=== PATIENT | male | born 1955 | race Caucasian/White ===

== ENCOUNTER → 2016-09-29 | Outpatient (CLI) | payer BC ==
[2016-09-29 09:55] LABS: HEMATOCRIT 49.1 % (37.9-51.0); HEMOGLOBIN 16.3 g/dL (13.5-17.0); HGB HCT DIFFERENCE -0.2; MEAN CORPUSCULAR HEMOGLOBIN 29.9 pg (27.0-33.4); MEAN CORPUSCULAR HGB CONC 33.2 g/dL (32.0-36.0); MEAN CORPUSCULAR VOLUME 90 fl (80-97); RED BLOOD COUNT 5.46 10^6/uL (4.35-5.55); RED CELL DISTRIBUTION WIDTH 12.2 % (11.5-14.0); WHITE BLOOD COUNT 8.1 10^3/uL (4.0-10.5)
[2016-09-29 10:16] LABS: ALANINE AMINOTRANSFERASE 30 U/L (21-72); ALBUMIN 4.4 g/dL (3.5-5.0); ALKALINE PHOSPHATASE 96 U/L (38-126); ASPARTATE AMINO TRANSFERASE 20 U/L (17-59); BILIRUBIN,TOTAL 0.6 mg/dL (0.2-1.3); CHOLESTEROL 143.94 mg/dL (0-200); Direct HDL 30 mg/dL (>40); TOTAL PROTEIN 6.7 g/dL (6.3-8.2); TRIGLYCERIDES 205 mg/dL (<150)
[2016-09-29 10:23] LABS: ANION GAP 10 (5-19); BLOOD UREA NITROGEN 21 mg/dL (7-20); CALCIUM 9.6 mg/dL (8.4-10.2); CARBON DIOXIDE 31 mmol/L (22-30); CHLORIDE 102 mmol/L (98-107); CREATININE RESULT 0.99 mg/dL (0.52-1.25); GLUCOSE 105 mg/dL (75-110); SODIUM 142.6 mmol/L (137-145)
[2016-09-29 10:28] LABS: DIRECT LDL 81 mg/dL (<100)
== END ==
LOC: OD 08:41
PROVIDERS: ATTEND Internal Medicine Cardiovascular Disease
DX: E78.00 Pure hypercholesterolemia, unspecified (principal); Z79.899 Other long term (current) drug therapy
CPT/HCPCS: 36415; 80048; 80061; 80076; 84443; 85027

== ENCOUNTER 2016-10-03 20:59 | Observation (INO) | payer BC ==
[2016-10-03] MEDS ORDERED: IPRATROPIUM/ALBUTEROL 0.5-2.5 MG/3 ML AMPUL NEB ONE (21:16)
[2016-10-03 21:32] LABS: ABSOLUTE EOSINOPHILS # (AUTO) 0.2 10^3/uL (0.0-0.6); ABSOLUTE MONOCYTES (AUTO) 0.7 10^3/uL (0.1-1.4); ABSOLUTE NEUT (AUTO) 5.1 10^3/uL (1.7-8.2); BASOPHILS % (AUTO) 0.5 % (0-2); EOSINOPHILS % (AUTO) 2.5 % (0-6); HEMATOCRIT 43.5 % (37.9-51.0); HEMOGLOBIN 14.8 g/dL (13.5-17.0); HGB HCT DIFFERENCE 0.9; LYMPHOCYTES % (AUTO) 24.8 % (13-45); MEAN CORPUSCULAR HEMOGLOBIN 29.8 pg (27.0-33.4); MEAN CORPUSCULAR VOLUME 88 fl (80-97); MONOCYTES % (AUTO) 8.9 % (3-13); RED BLOOD COUNT 4.96 10^6/uL (4.35-5.55); RED CELL DISTRIBUTION WIDTH 12.2 % (11.5-14.0); SEGMENTED NEUTROPHILS % (AUTO) 63.3 % (42-78)
--- NOTE | 2016-10-03 21:33 | ER Document Report ---
ED Cardiac - General Stated Complaint: CHEST PAIN Time seen by provider: 21:10 Notes: Patient is a 61 year old male that comes by EMS for chief complaint of chest pain, he points to the mid sternum area as the area of symptoms, patient states that the pain began when he got angry watching the news at about 2030. He went and took a nitroglycerin and symptoms resolved. Patient given 324 ASA. Patient is on Plavix. Patient states that he just had an echocardiogram with his biomaterials engineer and he is in consultation with another biomaterials engineer for potential cardiac catheter and stent placement next month he reports. Patient is a daily smoker. TRAVEL OUTSIDE OF THE [place] IN LAST 30 DAYS: No - Related Data Allergies/Adverse Reactions: acetaminophen [From Percocet] Allergy (Verified 10/04/16 03:12) oxycodone [From Percocet] Allergy (Verified 10/04/16 03:12) Past Medical History - General Information source: Patient - Social History Smoking Status: Current Every Day Smoker Smoking Education Provided: Yes - <3 min Frequency of alcohol use: None Drug Abuse: None Lives with: Family Family History: Reviewed & Not Pertinent - Past Medical History Cardiac Medical History: Reports: Hx Coronary Artery Disease, Hx Hypertension Review of Systems - Review of Systems Constitutional: No symptoms reported EENT: No symptoms reported Cardiovascular: See HPI Respiratory: No symptoms reported Gastrointestinal: No symptoms reported Genitourinary: No symptoms reported Male Genitourinary: No symptoms reported Musculoskeletal: No symptoms reported Skin: No symptoms reported Hematologic/Lymphatic: No symptoms reported Neurological/Psychological: No symptoms reported Physical Exam - Vital signs Vitals: Resp Pulse Ox 16 96 10/03/16 21:06 10/03/16 21:06 Interpretation: Normal - General General appearance: Appears well, Alert In distress: None - HEENT Head: Normocephalic, Atraumatic Eyes: Normal Extraocular movements intact: Yes Eyelashes: Normal Pupils: PERRL Nasal: Normal Mouth/Lips: Normal Mucous membranes: Normal Pharynx: Normal Neck: Normal - Respiratory Respiratory status: No respiratory distress Chest status: Nontender Breath sounds: Decreased air movement, Wheezing Chest palpation: Normal - Cardiovascular Rhythm: Regular. No: Tachycardia Heart sounds: Normal auscultation, S1 appreciated, S2 appreciated Murmur: No - Abdominal Inspection: Normal Distension: No distension Bowel sounds: Normal Tenderness: Nontender Organomegaly: No organomegaly - Back Back: Normal, Nontender - Extremities General upper extremity: Normal inspection, Nontender, Normal color, Normal ROM , Normal temperature General lower extremity: Normal inspection, Nontender, Normal color, Normal ROM , Normal temperature, Normal weight bearing. No: Edema, Yenni's sign - Neurological Neuro grossly intact: Yes Cognition: Normal Orientation: AAOx4 [place]na Coma Scale Eye Opening: Spontaneous [place] Coma Scale Verbal: Oriented [place] Coma Scale Motor: Obeys Commands [place] Coma Scale Total: 15 Speech: Normal Motor strength normal: LUE, RUE, LLE, RLE Sensory: Normal - Psychological Associated symptoms: Normal affect, Normal mood - Skin Skin Temperature: Warm Skin Moisture: Dry Skin Color: Normal Course - Re-evaluation Re-evalutation: Patient with wheezing throughout on examination, denies cough, denies fever, denies shortness of breath. Takes ProAir at home. Given a DuoNeb. Afterwards patient much improved. EKG shows sinus rhythm, flattened T waves laterally, questionable borderline bundle branch block, discussed this with Dr. Merritt who recommends that this does not appear to be a bundle branch block. No comparison EKG on hand. Mild hypokalemia, magnesium checked and unremarkable, patient given an oral dose of potassium. Patient becomes bradycardic when sleeping, is on beta john. Patient has remained pain-free on re-evaluations. Discussed with Dr. Saldaña, patient's biomaterials engineer, he states his only seen once but did perform an echo which showed mild hypokinesis of the left ventricle but no ischemic concerning findings. Discussed EKG with him as well. He recommends that because patient symptoms were so short lived, resolved so quickly with nitroglycerin, and if patient has 2 sets of negative troponins and repeat EKG with no significant changes that he could either go home with medication adjustment including Imdur 30 mg once daily and holding metoprolol for heart rate, he also recommend that patient be discussed again with emergency department physician. No significant changes in workup, discussed with Dr. Merritt, discussed with patient, patient is nervous about going home, discussed with hospitalist Dr. Khan who will admit patient to telemetry observation. - Vital Signs Vital signs: Temp Pulse Resp BP Pulse Ox 11 L 142/73 H 96 10/04/16 03:01 10/04/16 02:01 10/04/16 03:01 - Laboratory Result Diagrams: 10/03/16 21:10 10/03/16 21:10 Laboratory results interpreted by me: 10/03/16 21:10 Potassium 3.5 L Chloride 108 H BUN 28 H Glucose 139 H Creatine Kinase 31 L Total Protein 5.9 L Albumin 3.2 L Discharge - Discharge Clinical Impression: Chest pain Qualifiers: Chest pain type: unspecified Qualified Code(s): R07.9 - Chest pain, unspecified Condition: Stable Disposition: ADMITTED OBSERVATION Admitting Provider: Hospitalist - Dr. Khan Unit Admitted: Telemetry
[2016-10-03 21:48] LABS: ALANINE AMINOTRANSFERASE 33 U/L (21-72); ALBUMIN 3.2 g/dL (3.5-5.0); ALKALINE PHOSPHATASE 119 U/L (38-126); ANION GAP 11 (5-19); ASPARTATE AMINO TRANSFERASE 17 U/L (17-59); BILIRUBIN,TOTAL 0.3 mg/dL (0.2-1.3); BLOOD UREA NITROGEN 28 mg/dL (7-20); CALCIUM 8.6 mg/dL (8.4-10.2); CARBON DIOXIDE 26 mmol/L (22-30); CHLORIDE 108 mmol/L (98-107); CREATINE KINASE 31 U/L (55-170); CREATININE RESULT 0.77 mg/dL (0.52-1.25); GLUCOSE 139 mg/dL (75-110); POTASSIUM 3.5 mmol/L (3.6-5.0); SODIUM 144.7 mmol/L (137-145); TOTAL PROTEIN 5.9 g/dL (6.3-8.2)
[2016-10-03 22:00] LABS: CREATINE KINASE MB 1.21 ng/mL (<4.55)
[2016-10-03 22:01] LABS: TROPONIN I < 0.012 ng/mL
[2016-10-04] MEDS ORDERED: POTASSIUM CHLORIDE 10 MEQ TABLET.SA PO ONE (00:37)
[2016-10-04] MEDS ORDERED: IPRATROPIUM/ALBUTEROL 0.5-2.5 MG/3 ML AMPUL NEB PRN (04:34)
[2016-10-04] MEDS ORDERED: POTASSIUM CHLORIDE 20 MEQ/15 ML UDCUP PO ONE (04:34)
[2016-10-04] MEDS ORDERED: NICOTINE 21 MG/24 HR PATCH.TD24 TD PRN (04:34)
[2016-10-04] MEDS ORDERED: ACETAMINOPHEN 325 MG TABLET PO PRN (04:38)
--- NOTE | 2016-10-04 05:01 | PDOC H&P ---
History of Present Illness Admission Date/PCP: 10/04/16 03:14 pcp--Uncertain [place] Patient complains of: Chest pain History of Present Illness: ISABELLE SANCHEZ is a 61 year old male with underlying hypertension, anxiety, hyperlipidemia, arthritis, and asthma, having recently cut back to three-quarter pack of cigarettes per day, who presents to the emergency room for evaluation of above complaint. Patient has been discussed with emergency room nurse practitioner who evaluated the patient. Describes the onset of pressure-like lower chest pain that radiated across his chest when he was watching the evening news at 8:30 PM on the and became angry. Took one of his own nitroglycerin and a full strength aspirin. EMS came and he was given a second sublingual nitroglycerin which completely resolved his pain, which has not recurred. No radiation of this pain. Nothing in particular made it worse. Lasted approximately 1 hour. Has had previous such episodes of pain. Associated mild shortness of breath and sweating of his hands. Prior to my being called, the nurse practitioner discussed the patient with patient's occupational therapy manager, including the abnormal EKGs noted. Mid-level stated occupational therapy manager was comfortable with the patient being sent home with medication, but patient preferred to stay. Recently moved back to the area after being in the [facility] area for approximately one year. States he was told that he likely suffered a myocardial infarction in July of last year while still in the [place] area. Did not seek medical intervention at that time. Apparently EKG showed suspicious changes as far as the patient knows. No history of pulmonary embolus or DVT. No recent long trip with prolonged inactivity, or unusual lower extremity swelling or tenderness. Seen by his occupational therapy manager just this past and underwent echocardiogram. Uncertain results. States he is also scheduled to be seen by a second occupational therapy manager for possible cardiac catheterization in the near future. Family history remarkable for father who suffered an KS at an early age.. Laboratory results are listed in [facility] and are reviewed. X-ray summary results are listed below, with full report(s) reviewed. . EKG 2 reviewed. No old EKGs available for comparison. Social history/personal habits: . Has a daughter. Self-employed in real estate. Tobacco use as noted above. Rare alcohol. Denies illicit drug use. Allergies/adverse reactions are listed in [facility] and are reviewed. Home medications Unfortunately, patient uncertain of medications/dosages/ frequencies. Order has been entered for staff to contact family, outpatient physician, and/or pharmacy to more accurately determine medications, dosages, and frequencies and to contact physician when that has been accomplished. REVIEW OF SYSTEMS: Constitutional: No fever or chills. Eyes: Wears glasses. ENT: No swallowing problems or complaints. No hearing problems or complaints. Pulmonary: See history and present illness. Cardiovascular: See history and present illness. Gastrointestinal: No current complaints, including nausea or vomiting. Skin: No current complaints, including rashes. Hematologic: No unusual easy bruising or bleeding. Neurologic: No current complaints, including numbness or tingling. Musculoskeletal: Joint pain from arthritis. Psychiatric: Anxiety Endocrine: No current complaints, including polyuria. Genitourinary: No current complaints, including dysuria. PHYSICAL EXAMINATION: 6 feet tall. 93.4 kg. BMI 27.9 kg/m. 142/73. Pulse 44 and regular. 98% saturation on 2 L oxygen per nasal cannula. Respirations are 20 and unlabored. Temperature is not recorded on the chart. Slightly overweight otherwise well-nourished well-developed male appearing approximately his stated age. Pleasant awake alert and cooperative. No obvious distress other than somewhat anxious. Skin is warm and dry. No grossly obvious evidence of rash in areas of skin examined. No subcutaneous nodules palpated. ENT: Hearing grossly normal to normal conversation. Tongue midline on protrusion pink and slightly tacky. Eyes: No scleral icterus. Pupils equal and reactive to light at 4 mm. [place] conjunctivae. Neck is supple and nontender to gentle active range of motion and palpation. Midline trachea. No palpable thyroid nodule mass enlargement or tenderness. Lymphatic: No palpable cervical or clavicular nodes. Neck and lymphatic exams limited by patient body habitus. Psychiatric: Reasonable insight into acute and chronic medical issues. Oriented to time location and why here. Lungs: Auscultation reveals clear and equal breath sounds bilaterally. No use of accessory respiratory muscles. Cardiovascular: Heart regular rate and rhythm, without gallop murmur or rub. No carotid or abdominal aortic bruits. No ankle or pedal edema. Faintly palpable dorsalis pedis pulses. Abdomen: soft, , nontender with positive bowel sounds. No upper abdominal mass or organomegaly palpated. Compression of neither the upper abdomen nor sternum reproduces his previously noted chest discomfort. Extremities: Feet are warm and dry. No calf tenderness to compression. No grossly obvious visual evidence of calf swelling. Gentle manipulation of lower extremities fails to reveal any obvious evidence of injury or instability to knees hips or ankles. Neurologic: Moves upper extremities grossly normally. Patellar reflexes absent. Absent Babinski. Light touch is intact at feet. Dorsiflexion and plantarflexion of feet 5 / 5 and symmetric. Past Medical History Cardiac Medical History: Reports: Coronary Artery Disease - Suspected, Myocardial Infarction - Suspected, Hyperlipidema, Hypertension Denies: Congestive Heart Failure, DVT, Pulmonary Embolism Pulmonary Medical History: Reports: Asthma EENT Medical History: Denies: Eyes, Ears, Throat Neurological Medical History: Denies: Hemorrhagic CVA, Ischemic CVA, Seizures Endocrine Medical History: Denies: Diabetes Mellitus Type 1, Diabetes Mellitus Type 2, Hyperthyroidism, Hypothyroidism Renal/ Medical History: Reports: None GI Medical History: Denies: Cirrhosis, Gastroesophageal Reflux Disease, Hepatitis, Peptic Ulcer Disease Musculoskeltal Medical History: Reports: Arthritis Skin Medical History: Reports: None Denies: Eczema, Psoriasis Psychiatric Medical History: Reports: General Anxiety Disorder, Tobacco Dependency Denies: Alcohol Dependency, Substance Abuse Hematology: Reports: None Infectious Medical History: Denies: Hepatitis B, Hepatitis C Past Surgical History Past Surgical History: Reports: Herniorrhaphy Social History Information Source: Patient, Emergency Med Personnel, [facility] Records Lives with: Spouse/Significant other Smoking Status: Current Every Day Smoker Frequency of Alcohol Use: Rare Drugs: None - Advance Directive Resuscitation Status: Full Code Surrogate healthcare decision maker:: Family History Family History: Reviewed & Not Pertinent Parental Family History Reviewed: Yes Children Family History Reviewed: Yes Sibling(s) Family History Reviewed.: Yes Medication/Allergy Home Medications: RX: Albuterol Sulfate [Proair HFA] 2 puff IH Q4HP PRN 10/04/16 RX: Aspirin [Ecotrin 81 mg EC Tablet] 81 mg PO DAILY #30 tabec 10/04/16 RX: Clonazepam [Klonopin] 0.5 mg PO BIDP PRN 10/04/16 RX: Colchicine [Colchicine 0.6 mg Tablet] 0.6 mg PO DAILY 10/04/16 RX: Isosorbide Mononitrate [Imdur 30 mg Tablet.er] 30 mg PO DAILY #30 tab.er.24h 10/04/16 RX: Lisinopril [Zestril] 20 mg PO QAM 10/04/16 RX: Metoprolol Tartrate [Lopressor 25 mg Tablet] 12.5 mg PO Q12 #30 tablet 10/04 RX: Montelukast Sodium [Singulair 10 mg Tablet] 10 mg PO QAM 10/04/16 RX: Nitroglycerin [Nitrostat] 0.4 mg SL Q5MP PRN 10/04/16 RX: Pravastatin Sodium [Pravachol] 20 mg PO WSUPPER 10/04/16 RX: Trazodone HCl [Desyrel 50 mg Tablet] 50 mg PO QHS 10/04/16 Allergies/Adverse Reactions: oxycodone [From Percocet] Allergy (Unknown, Verified 10/04/16 04:38) Physical Exam Vital Signs: Temp Pulse Resp BP Pulse Ox 17 129/76 H 97 10/04/16 04:02 10/04/16 04:02 10/04/16 04:02 Results Impressions: Chest X-Ray 10/03/16 21:16 IMPRESSION: NO ACUTE RADIOGRAPHIC FINDING IN THE CHEST. Assessment & Plan - Diagnosis (1) Chest pain Qualifiers: Chest pain type: unspecified Qualified Code(s): R07.9 - Chest pain, unspecified Is this a current diagnosis for this admission?: YesPlan: Patient will be placed in observation bed under chest pain protocol. Patient understands to notify staff should chest pain recur. Serial troponin's . Repeat EKG. lipid panel. I have strongly urged patient to be careful getting out of bed, to avoid a fall with injury. Knee high SCDs for DVT prophylaxis, along with subcutaneous Lovenox. Impression and plans were discussed with patient, who concurs. Time spent in evaluation and management of patient: 58 minutes. (2) Hypokalemia Is this a current diagnosis for this admission?: YesPlan: Has received oral potassium supplement in the emergency room. (3) History of myocardial infarction Is this a current diagnosis for this admission?: YesPlan: Suspected, with plans to see a second occupational therapy manager about possible heart catheterization in the near future. (4) Asthma Qualifiers: Asthma severity: unspecified severity Asthma complication type: uncomplicated Qualified Code(s): J45.909 - Unspecified asthma, uncomplicated Is this a current diagnosis for this admission?: YesPlan: Daily wheezing.Resume home medications as appropriate once these have been determined and reviewed. (5) HTN (hypertension) Qualifiers: Hypertension type: essential hypertension Qualified Code(s): I10 - Essential (primary) hypertension Is this a current diagnosis for this admission?: YesPlan: Resume home medications as appropriate once these have been determined and reviewed. (6) Hyperlipidemia Qualifiers: Hyperlipidemia type: unspecified Qualified Code(s): E78.5 - Hyperlipidemia, unspecified Is this a current diagnosis for this admission?: YesPlan: Resume home medications as appropriate once these have been determined and reviewed. (7) Tobacco dependency Is this a current diagnosis for this admission?: YesPlan: When necessary nicotine patch.
[2016-10-04] MEDS ORDERED: LANSOPRAZOLE 30 MG TAB.RAP.DR PO SCH (06:00)
[2016-10-04 07:24] LABS: CHOLESTEROL 112.35 mg/dL (0-200); Direct HDL 30 mg/dL (>40); TRIGLYCERIDES 123 mg/dL (<150)
[2016-10-04 07:35] LABS: DIRECT LDL 56 mg/dL (<100)
[2016-10-04] MEDS ORDERED: ASPIRIN 81 MG TABLET, ENT COATED PO SCH (10:00)
[2016-10-04] MEDS ORDERED: ENOXAPARIN SODIUM INJ 40 MG/0.4 ML DISP.SYRIN SUBCUT SCH (10:00)
[2016-10-04 12:32] VITALS: BP 155/65
[2016-10-04] MEDS ORDERED: ALBUTEROL SULFATE HFA (90 MCG/PUFF) 8 GM MDI (1 MDI/ER DISP) IH PRN (13:53)
[2016-10-04] MEDS ORDERED: (PENDING PHARMACY ID) (Clonazepam [Klonopin] 0.5 MG) PO PRN (13:53)
[2016-10-04] MEDS ORDERED: NITROGLYCERIN 0.4 MG/TAB 25 TAB/BOTTLE SL PRN (13:53)
[2016-10-04] MEDS ORDERED: ISOSORBIDE MONONITRATE 30 MG TAB.ER.24H PO SCH (14:00)
[2016-10-04] MEDS ORDERED: ISOSORBIDE MONONITRATE 30 MG TAB.ER.24H PO ONE (14:15)
--- NOTE | 2016-10-04 15:16 | EKG REPORT ---
SEVERITY:- ABNORMAL ECG - SINUS BRADYCARDIA LEFT BUNDLE BRANCH BLOCK : Confirmed by: Veena Lombardo MD 04-Oct-2016 15:15:45
--- NOTE | 2016-10-04 15:16 | EKG REPORT ---
SEVERITY:- ABNORMAL ECG - SINUS RHYTHM NONSPECIFIC INTRAVENTRICULAR CONDUCTION DELAY ANTERIOR INFARCT, AGE INDETERMINATE : Confirmed by: Veena Lombardo MD 04-Oct-2016 15:15:50
[2016-10-04] MEDS ORDERED: ATORVASTATIN CALCIUM 10 MG TABLET PO SCH (17:00)
[2016-10-04] MEDS ORDERED: MONTELUKAST SODIUM 10 MG TABLET PO SCH (22:00)
[2016-10-04] MEDS ORDERED: METOPROLOL TARTRATE 25 MG TABLET PO SCH (22:00)
[2016-10-04] MEDS ORDERED: TRAZODONE HCL 50 MG TABLET PO SCH (22:00)
[2016-10-05] MEDS ORDERED: LISINOPRIL 10 MG TABLET PO SCH (08:00)
[2016-10-05] MEDS ORDERED: (PENDING PHARMACY ID) (Lisinopril [Zestril] 20 MG) PO SCH (08:00)
[2016-10-05] MEDS ORDERED: ISOSORBIDE MONONITRATE 30 MG TAB.ER.24H PO SCH (10:00)
[2016-10-05] MEDS ORDERED: COLCHICINE 0.6 MG TABLET PO SCH (10:00)
--- NOTE | 2016-10-05 17:07 | PDOC DISCHARGE SUMMARY ---
General - Admit/Disc Date/PCP Admission Date/Primary Care Provider: 10/04/16 04:35 Outpatient healthcare social worker: Dr. Saldaña Discharge Date: 10/04/16 - Discharge Diagnosis (1) Chest pain Is this a current diagnosis for this admission?: Yes (2) Hypokalemia Is this a current diagnosis for this admission?: Yes (3) History of myocardial infarction Is this a current diagnosis for this admission?: No (4) Asthma Is this a current diagnosis for this admission?: Yes (5) HTN (hypertension) Is this a current diagnosis for this admission?: Yes (6) Hyperlipidemia Is this a current diagnosis for this admission?: Yes (7) Tobacco dependency Is this a current diagnosis for this admission?: Yes - Additional Information Resuscitation Status: Full Code Discharge Diet: Cardiac Discharge Activity: Activity As Tolerated Home Medications: Albuterol Sulfate [Proair HFA] 2 puff IH Q4HP PRN 10/04/16 Aspirin [Ecotrin 81 mg EC Tablet] 81 mg PO DAILY #30 tabec 10/04/16 Clonazepam [Klonopin] 0.5 mg PO BIDP PRN 10/04/16 Colchicine [Colchicine 0.6 mg Tablet] 0.6 mg PO DAILY 10/04/16 Isosorbide Mononitrate [Imdur 30 mg Tablet.er] 30 mg PO DAILY #30 tab.er.24h Lisinopril [Zestril] 20 mg PO QAM 10/04/16 Metoprolol Tartrate [Lopressor 25 mg Tablet] 12.5 mg PO Q12 #30 tablet 10/04/16 Montelukast Sodium [Singulair 10 mg Tablet] 10 mg PO QAM 10/04/16 Nitroglycerin [Nitrostat] 0.4 mg SL Q5MP PRN 10/04/16 Pravastatin Sodium [Pravachol] 20 mg PO WSUPPER 10/04/16 Trazodone HCl [Desyrel 50 mg Tablet] 50 mg PO QHS 10/04/16 History of Present Illness Patient complains of: Chest pain History of Present Illness: ISABELLE SANCHEZ is a 61 year old male with underlying hypertension, anxiety, hyperlipidemia, arthritis, and asthma, having recently cut back to three-quarter pack of cigarettes per day, who presents to the emergency room for evaluation of chest pain. Describes the onset of pressure-like lower chest pain that radiated across his chest when he was watching the evening news at 8: 30 PM on the and became angry. Took one of his own nitroglycerin and a full strength aspirin. EMS came and he was given a second sublingual nitroglycerin which completely resolved his pain, which has not recurred. No radiation of this pain. Nothing in particular made it worse. Lasted approximately 1 hour. Has had previous such episodes of pain. Associated mild shortness of breath and sweating of his hands. Prior to admission, the nurse practitioner discussed the patient with patient's healthcare social worker, including the abnormal EKGs noted. Spd Tech was comfortable with the patient being sent home with medication, but patient preferred to stay. Recently moved back to the area after being in the [facility] area for approximately one year. States he was told that he likely suffered a myocardial infarction in July of last year while still in the [facility]. Did not seek medical intervention at that time. Apparently EKG showed suspicious changes as far as the patient knows. No history of pulmonary embolus or DVT. No recent long trip with prolonged inactivity, or unusual lower extremity swelling or tenderness. Seen by his healthcare social worker just this past and underwent echocardiogram. Uncertain results. States he is also scheduled to be seen by a second healthcare social worker for possible cardiac catheterization in the near future. Hospital Course Hospital Course: The patient was observed in a continues telemetry unit, serial cardiac enzymes were obtained which were nonsuggestive. The patient's EKG revealed no acute changes and the patient had no events on slicing machine feeder. Patient had no further replication of symptoms and is eager for discharge. The patient does have a follow-up appointment with his healthcare social worker this week. Physical Exam Vital Signs: Temp Pulse Resp BP Pulse Ox 97.8 F 53 L 20 155/65 H 98 10/04/16 14:06 10/04/16 14:06 10/04/16 14:06 10/04/16 14:06 10/04/16 14:06 Intake & Output 10/03/16 10/04/16 10/05/16 23:59 23:59 23:59 Weight 93.44 kg General appearance: PRESENT: no acute distress, well-developed, well-nourished Head exam: PRESENT: atraumatic, normocephalic Eye exam: PRESENT: conjunctiva pink, EOMI, PERRLA. ABSENT: scleral icterus Ear exam: PRESENT: normal external ear exam Mouth exam: PRESENT: moist, tongue midline Neck exam: ABSENT: carotid bruit, JVD, lymphadenopathy, thyromegaly Respiratory exam: PRESENT: clear to auscultation [place]. ABSENT: rales, rhonchi, wheezes Cardiovascular exam: PRESENT: RRR. ABSENT: diastolic murmur, rubs, systolic murmur Pulses: PRESENT: normal dorsalis pedis pul Vascular exam: PRESENT: normal capillary refill GI/Abdominal exam: PRESENT: normal bowel sounds, soft. ABSENT: distended, guarding, mass, organolmegaly, rebound, tenderness Rectal exam: PRESENT: deferred Extremities exam: PRESENT: full ROM. ABSENT: calf tenderness, clubbing, pedal edema Neurological exam: PRESENT: alert, awake, oriented to person, oriented to place , oriented to time, oriented to situation, CN II-XII grossly intact. ABSENT: motor sensory deficit Psychiatric exam: PRESENT: appropriate affect, normal mood. ABSENT: homicidal ideation, suicidal ideation Skin exam: PRESENT: dry, intact, warm. ABSENT: cyanosis, rash Results Laboratory Results: Labs- Last Values WBC 8.0 10^3/uL (4.0-10.5) 10/03/16 21:10 RBC 4.96 10^6/uL (4.35-5.55) 10/03/16 21:10 Hgb 14.8 g/dL (13.5-17.0) 10/03/16 21:10 Hct 43.5 % (37.9-51.0) 10/03/16 21:10 MCV 88 fl (80-97) 10/03/16 21:10 MCH 29.8 pg (27.0-33.4) 10/03/16 21:10 MCHC 34.0 g/dL (32.0-36.0) 10/03/16 21:10 RDW 12.2 % (11.5-14.0) 10/03/16 21:10 Plt Count 184 10^3/uL (150-450) 10/03/16 21:10 Seg Neutrophils % 63.3 % (42-78) 10/03/16 21:10 Lymphocytes % 24.8 % (13-45) 10/03/16 21:10 Monocytes % 8.9 % (3-13) 10/03/16 21:10 Eosinophils % 2.5 % (0-6) 10/03/16 21:10 Basophils % 0.5 % (0-2) 10/03/16 21:10 Absolute Neutrophils 5.1 10^3/uL (1.7-8.2) 10/03/16 21:10 Absolute Lymphocytes 2.0 10^3/uL (0.5-4.7) 10/03/16 21:10 Absolute Monocytes 0.7 10^3/uL (0.1-1.4) 10/03/16 21:10 Absolute Eosinophils 0.2 10^3/uL (0.0-0.6) 10/03/16 21:10 Absolute Basophils 0.0 10^3/uL (0.0-0.2) 10/03/16 21:10 Sodium 144.7 mmol/L (137-145) 10/03/16 21:10 Potassium 3.5 mmol/L (3.6-5.0) L 10/03/16 21:10 Chloride 108 mmol/L (98-107) H 10/03/16 21:10 Carbon Dioxide 26 mmol/L (22-30) 10/03/16 21:10 Anion Gap 11 (5-19) 10/03/16 21:10 BUN 28 mg/dL (7-20) H 10/03/16 21:10 Creatinine 0.77 mg/dL (0.52-1.25) 10/03/16 21:10 Est GFR ( Amer) > 60 (>60) 10/03/16 21:10 Est GFR (Non-Af Amer) > 60 (>60) 10/03/16 21:10 Glucose 139 mg/dL (75-110) H 10/03/16 21:10 Calcium 8.6 mg/dL (8.4-10.2) 10/03/16 21:10 Magnesium 1.8 mg/dL (1.6-2.3) 10/03/16 21:10 Total Bilirubin 0.3 mg/dL (0.2-1.3) 10/03/16 21:10 Direct Bilirubin 0.0 mg/dL (0.0-0.3) 10/03/16 21:10 AST 17 U/L (17-59) 10/03/16 21:10 ALT 33 U/L (21-72) 10/03/16 21:10 Alkaline Phosphatase 119 U/L (38-126) 10/03/16 21:10 Creatine Kinase 31 U/L (55-170) L 10/03/16 21:10 CK-MB (CK-2) 1.21 ng/mL (<4.55) 10/03/16 21:10 Troponin I < 0.012 ng/mL 10/04/16 13:07 Total Protein 5.9 g/dL (6.3-8.2) L 10/03/16 21:10 Albumin 3.2 g/dL (3.5-5.0) L 10/03/16 21:10 Triglycerides 123 mg/dL (<150) 10/04/16 06:57 Cholesterol 112.35 mg/dL (0-200) 10/04/16 06:57 LDL Cholesterol Direct 56 mg/dL (<100) 10/04/16 06:57 VLDL Cholesterol 25.0 mg/dL (10-31) 10/04/16 06:57 HDL Cholesterol 30 mg/dL (>40) L 10/04/16 06:57 Impressions: Chest X-Ray 10/03/16 21:16 IMPRESSION: NO ACUTE RADIOGRAPHIC FINDING IN THE CHEST. Qualifiers PATEINT BEING DISCHARGED WITH ANY OF THE FOLLOWING DIAGNOSIS?: No Plan Discharge Plan: The patient is follows primary care provider as needed. The patient is a follow with his healthcare social worker Dr. Alfaro within the week for hospital follow-up and possible evaluation for cardiac catheterization. Time Spent: Greater than 30 Minutes - Time spent on this discharge including assessment, plan, patient education, family meeting, review of records and collaboration is 60 minutes
== END 2016-10-04 14:08 | disposition home or self-care (01) ==
LOC: ER 20:59 → EH 10-04 03:14 → UNDOADMOB 10-04 03:14 → EH 10-04 04:35 → 5 10-04 04:44 → EH 10-04 04:44
PROVIDERS: ADMIT Family Medicine; ATTEND Family Medicine
DX: R07.9 Chest pain, unspecified (principal); E87.6 Hypokalemia; I25.2 Old myocardial infarction; J45.909 Unspecified asthma, uncomplicated; I10 Essential (primary) hypertension; E78.5 Hyperlipidemia, unspecified; F41.9 Anxiety disorder, unspecified; M19.90 Unspecified osteoarthritis, unspecified site; F17.210 Nicotine dependence, cigarettes, uncomplicated; I25.10 Atherosclerotic heart disease of native coronary artery without angina pectoris
CPT/HCPCS: 93005 ×2; 94640; 99285; 36415 ×2; 82553; 82550; 83735; 85025; 80053; 84484 ×2; 80061; 71010; 93010 ×2; G0378; J7620

== ENCOUNTER → 2016-11-21 | Outpatient (CLI) | payer BC ==
[2016-11-21 18:45] LABS: PROTHROMBIN TIME 12.3 SEC (11.4-15.4)
[2016-11-21 18:47] LABS: ABSOLUTE EOSINOPHILS # (AUTO) 0.2 10^3/uL (0.0-0.6); ABSOLUTE LYMPHOCYTES (AUTO) 2.6 10^3/uL (0.5-4.7); ABSOLUTE MONOCYTES (AUTO) 0.8 10^3/uL (0.1-1.4); ABSOLUTE NEUT (AUTO) 4.6 10^3/uL (1.7-8.2); BASOPHILS % (AUTO) 0.6 % (0-2); EOSINOPHILS % (AUTO) 1.9 % (0-6); HEMATOCRIT 44.9 % (37.9-51.0); HEMOGLOBIN 15.6 g/dL (13.5-17.0); HGB HCT DIFFERENCE 1.9; LYMPHOCYTES % (AUTO) 31.9 % (13-45); MEAN CORPUSCULAR HEMOGLOBIN 30.3 pg (27.0-33.4); MEAN CORPUSCULAR HGB CONC 34.8 g/dL (32.0-36.0); MEAN CORPUSCULAR VOLUME 87 fl (80-97); MONOCYTES % (AUTO) 9.3 % (3-13); RED BLOOD COUNT 5.15 10^6/uL (4.35-5.55); RED CELL DISTRIBUTION WIDTH 12.6 % (11.5-14.0); SEGMENTED NEUTROPHILS % (AUTO) 56.3 % (42-78); WHITE BLOOD COUNT 8.1 10^3/uL (4.0-10.5)
[2016-11-21 19:02] LABS: ANION GAP 11 (5-19); BLOOD UREA NITROGEN 20 mg/dL (7-20); CALCIUM 9.5 mg/dL (8.4-10.2); CARBON DIOXIDE 30 mmol/L (22-30); CHLORIDE 102 mmol/L (98-107); CREATININE RESULT 0.88 mg/dL (0.52-1.25); GLUCOSE 76 mg/dL (75-110); POTASSIUM 4.4 mmol/L (3.6-5.0)
== END ==
LOC: OD 17:06
PROVIDERS: ATTEND Internal Medicine Cardiovascular Disease
DX: Z01.810 Encounter for preprocedural cardiovascular examination (principal); R07.9 Chest pain, unspecified; R07.89 Other chest pain; Z79.01 Long term (current) use of anticoagulants
CPT/HCPCS: 36415; 80048; 85025; 85610; 85730

== ENCOUNTER → 2017-01-20 | Outpatient (CLI) | payer BC ==
[2017-01-20 11:14] LABS: ALANINE AMINOTRANSFERASE 40 U/L (21-72); ALBUMIN 4.1 g/dL (3.5-5.0); ALKALINE PHOSPHATASE 124 U/L (38-126); ASPARTATE AMINO TRANSFERASE 25 U/L (17-59); BILIRUBIN,DIRECT 0.3 mg/dL (0.0-0.4); BILIRUBIN,TOTAL 0.7 mg/dL (0.2-1.3); CHOLESTEROL 123.43 mg/dL (0-200); Direct HDL 54 mg/dL (>40); TRIGLYCERIDES 108 mg/dL (<150)
[2017-01-20 11:25] LABS: DIRECT LDL 48 mg/dL (<100)
== END ==
LOC: OD 09:28
PROVIDERS: ATTEND Internal Medicine Cardiovascular Disease
DX: E78.00 Pure hypercholesterolemia, unspecified (principal)
CPT/HCPCS: 36415; 80061; 80076

== ENCOUNTER → 2019-04-18 | Outpatient (CLI) | payer BC ==
[2019-04-18 08:19] LABS: HEMATOCRIT 43.4 % (37.9-51.0); MEAN CORPUSCULAR HEMOGLOBIN 31.2 pg (27.0-33.4); MEAN CORPUSCULAR HGB CONC 34.5 g/dL (32.0-36.0); MEAN CORPUSCULAR VOLUME 90 fl (80-97); PLATELET COUNT 208 10^3/uL (150-450); RED CELL DISTRIBUTION WIDTH 12.4 % (11.5-14.0); WHITE BLOOD COUNT 8.9 10^3/uL (4.0-10.5)
[2019-04-18 08:38] LABS: ALBUMIN 4.2 g/dL (3.5-5.0); ALKALINE PHOSPHATASE 111 U/L (38-126); ANION GAP 9 (5-19); ASPARTATE AMINO TRANSFERASE 24 U/L (17-59); BILIRUBIN,DIRECT 0.3 mg/dL (0.0-0.4); BILIRUBIN,TOTAL 0.6 mg/dL (0.2-1.3); BLOOD UREA NITROGEN 15 mg/dL (7-20); CALCIUM 9.2 mg/dL (8.4-10.2); CARBON DIOXIDE 28 mmol/L (22-30); CHLORIDE 102 mmol/L (98-107); GLUCOSE 110 mg/dL (75-110); POTASSIUM 4.7 mmol/L (3.6-5.0); TOTAL PROTEIN 6.7 g/dL (6.3-8.2)
== END ==
LOC: OD 07:10
PROVIDERS: ATTEND Physician Assistant
DX: I10 Essential (primary) hypertension (principal); I25.10 Atherosclerotic heart disease of native coronary artery without angina pectoris; R07.9 Chest pain, unspecified; E78.2 Mixed hyperlipidemia; Z79.899 Other long term (current) drug therapy
CPT/HCPCS: 36415; 80048; 80076; 83735; 84443; 85027

== ENCOUNTER → 2019-04-29 | Outpatient (CLI) | payer BC ==
[2019-04-29 08:50] LABS: CHOLESTEROL 96.07 mg/dL (0-200); TRIGLYCERIDES 57 mg/dL (<150)
[2019-04-29 09:12] LABS: DIRECT LDL 53 mg/dL (<100)
== END ==
LOC: OD 07:21
PROVIDERS: ATTEND Physician Assistant
DX: E78.2 Mixed hyperlipidemia (principal); I10 Essential (primary) hypertension; Z79.899 Other long term (current) drug therapy
CPT/HCPCS: 36415; 80061

== ENCOUNTER → 2019-05-20 | Outpatient (CLI) | payer BC ==
[2019-05-20 10:42] LABS: ANION GAP 7 (5-19); BLOOD UREA NITROGEN 17 mg/dL (7-20); CALCIUM 9.3 mg/dL (8.4-10.2); CARBON DIOXIDE 31 mmol/L (22-30); CHLORIDE 103 mmol/L (98-107); GLUCOSE 132 mg/dL (75-110); POTASSIUM 4.3 mmol/L (3.6-5.0)
== END ==
LOC: OD 09:20
PROVIDERS: ATTEND Physician Assistant
DX: I10 Essential (primary) hypertension (principal); Z79.899 Other long term (current) drug therapy
CPT/HCPCS: 36415; 80048

== ENCOUNTER → 2019-08-26 | Outpatient (CLI) | payer BC ==
[2019-08-26 10:07] LABS: ALBUMIN 4.3 g/dL (3.5-5.0); ALKALINE PHOSPHATASE 107 U/L (38-126); ANION GAP 7 (5-19); ASPARTATE AMINO TRANSFERASE 26 U/L (17-59); BILIRUBIN,DIRECT 0.2 mg/dL (0.0-0.4); BILIRUBIN,TOTAL 0.6 mg/dL (0.2-1.3); BLOOD UREA NITROGEN 23 mg/dL (7-20); CALCIUM 10.1 mg/dL (8.4-10.2); CARBON DIOXIDE 34 mmol/L (22-30); CHLORIDE 101 mmol/L (98-107); CHOLESTEROL 135.07 mg/dL (0-200); GLUCOSE 107 mg/dL (75-110); POTASSIUM 4.7 mmol/L (3.6-5.0); TOTAL PROTEIN 7.4 g/dL (6.3-8.2); TRIGLYCERIDES 116 mg/dL (<150)
[2019-08-26 10:18] LABS: DIRECT LDL 69 mg/dL (<100)
== END ==
LOC: OD 08:52
PROVIDERS: ATTEND Physician Assistant
DX: E78.2 Mixed hyperlipidemia (principal); I10 Essential (primary) hypertension; Z79.899 Other long term (current) drug therapy
CPT/HCPCS: 36415; 80048; 80061; 80076

== ENCOUNTER → 2019-10-08 | Outpatient (CLI) | payer BC ==
[2019-10-08 10:30] LABS: ALBUMIN 3.8 g/dL (3.5-5.0); ALKALINE PHOSPHATASE 96 U/L (38-126); ANION GAP 7 (5-19); ASPARTATE AMINO TRANSFERASE 33 U/L (17-59); BILIRUBIN,TOTAL 0.5 mg/dL (0.2-1.3); BLOOD UREA NITROGEN 15 mg/dL (7-20); CALCIUM 9.1 mg/dL (8.4-10.2); CARBON DIOXIDE 32 mmol/L (22-30); CHLORIDE 103 mmol/L (98-107); CHOLESTEROL 60.21 mg/dL (0-200); GLUCOSE 95 mg/dL (75-110); POTASSIUM 4.8 mmol/L (3.6-5.0); TOTAL PROTEIN 6.3 g/dL (6.3-8.2); TRIGLYCERIDES 81 mg/dL (<150)
[2019-10-08 10:41] LABS: DIRECT LDL 30 mg/dL (<100)
== END ==
LOC: OD 08:37
PROVIDERS: ATTEND Physician Assistant
DX: I10 Essential (primary) hypertension (principal); E78.2 Mixed hyperlipidemia; Z79.899 Other long term (current) drug therapy
CPT/HCPCS: 36415; 80048; 80061; 80076

== ENCOUNTER → 2020-02-20 | Outpatient (CLI) | payer SELFPAY ==
[2020-02-20 08:49] LABS: ALBUMIN 4.6 g/dL (3.5-5.0); ALKALINE PHOSPHATASE 107 U/L (38-126); ANION GAP 5 (5-19); ASPARTATE AMINO TRANSFERASE 25 U/L (17-59); BILIRUBIN,TOTAL 0.7 mg/dL (0.2-1.3); BLOOD UREA NITROGEN 19 mg/dL (7-20); CALCIUM 9.8 mg/dL (8.4-10.2); CARBON DIOXIDE 32 mmol/L (22-30); CHLORIDE 102 mmol/L (98-107); CHOLESTEROL 112.34 mg/dL (0-200); GLUCOSE 114 mg/dL (75-110); POTASSIUM 4.6 mmol/L (3.6-5.0); TOTAL PROTEIN 7.4 g/dL (6.3-8.2); TRIGLYCERIDES 131 mg/dL (<150)
[2020-02-20 09:00] LABS: DIRECT LDL 53 mg/dL (<100)
== END ==
LOC: OD 07:35
PROVIDERS: ATTEND Physician Assistant
DX: E78.2 Mixed hyperlipidemia (principal); I10 Essential (primary) hypertension; R94.5 Abnormal results of liver function studies; Z79.899 Other long term (current) drug therapy
CPT/HCPCS: 36415; 80048; 80061; 80076

== ENCOUNTER → 2020-06-25 | Outpatient (CLI) | payer SELFPAY ==
[2020-06-25 10:10] LABS: ALBUMIN 4.3 g/dL (3.5-5.0); ALKALINE PHOSPHATASE 123 U/L (38-126); ANION GAP 8 (5-19); ASPARTATE AMINO TRANSFERASE 23 U/L (17-59); BILIRUBIN,DIRECT 0.3 mg/dL (0.0-0.4); BILIRUBIN,TOTAL 0.5 mg/dL (0.2-1.3); BLOOD UREA NITROGEN 20 mg/dL (7-20); CALCIUM 9.3 mg/dL (8.4-10.2); CARBON DIOXIDE 31 mmol/L (22-30); CHLORIDE 101 mmol/L (98-107); CHOLESTEROL 120.26 mg/dL (0-200); GLUCOSE 110 mg/dL (75-110); POTASSIUM 4.2 mmol/L (3.6-5.0); TOTAL PROTEIN 6.7 g/dL (6.3-8.2); TRIGLYCERIDES 118 mg/dL (<150)
[2020-06-25 10:21] LABS: DIRECT LDL 55 mg/dL (<100)
== END ==
LOC: OD 07:17
PROVIDERS: ATTEND Internal Medicine Cardiovascular Disease
DX: E78.2 Mixed hyperlipidemia (principal); I10 Essential (primary) hypertension; R94.5 Abnormal results of liver function studies; Z79.899 Other long term (current) drug therapy
CPT/HCPCS: 36415; 80048; 80061; 80076

== ENCOUNTER → 2020-09-22 | Outpatient (CLI) | payer SELFPAY ==
[2020-09-22 10:16] LABS: ALBUMIN 4.3 g/dL (3.5-5.0); ALKALINE PHOSPHATASE 98 U/L (38-126); ANION GAP 5 (5-19); ASPARTATE AMINO TRANSFERASE 28 U/L (17-59); BILIRUBIN,DIRECT 0.2 mg/dL (0.0-0.4); BILIRUBIN,TOTAL 0.7 mg/dL (0.2-1.3); BLOOD UREA NITROGEN 19 mg/dL (7-20); CALCIUM 9.6 mg/dL (8.4-10.2); CARBON DIOXIDE 34 mmol/L (22-30); CHLORIDE 99 mmol/L (98-107); CHOLESTEROL 100.22 mg/dL (0-200); GLUCOSE 109 mg/dL (75-110); POTASSIUM 4.5 mmol/L (3.6-5.0); TOTAL PROTEIN 7.2 g/dL (6.3-8.2); TRIGLYCERIDES 106 mg/dL (<150)
[2020-09-22 10:27] LABS: DIRECT LDL 42 mg/dL (<100)
== END ==
LOC: OD 08:39
PROVIDERS: ATTEND Internal Medicine Cardiovascular Disease
DX: E78.2 Mixed hyperlipidemia (principal); I10 Essential (primary) hypertension; Z79.899 Other long term (current) drug therapy
CPT/HCPCS: 36415; 80048; 80061; 80076